=== PATIENT | female | born 1965 ===

== ENCOUNTER 2022-10-27 08:10 | Day surgery (SDC) | payer OTHER ==
[2022-10-27] MEDS ORDERED: Ringers Lactate 1,000 ML IV ONE (08:46)
[2022-10-27] MEDS ORDERED: CEFAZOLIN SODIUM 1 GM/VIAL ONE (08:46)
[2022-10-27] MEDS ORDERED: ONDANSETRON 4 MG/2 ML VIAL ONE ×2 (09:24→13:02)
[2022-10-27] MEDS ORDERED: MIDAZOLAM HCL 2 MG/2 ML INJ ONE (09:24)
[2022-10-27] MEDS ORDERED: FENTANYL CITR 100 MCG/2 ML ONE (09:24)
[2022-10-27] MEDS ORDERED: propofoL 200 MG/20 ML VIAL IV ONE (09:24)
[2022-10-27] MEDS ORDERED: LIDOCAINE 2% MPF 5 ML VIAL ONE ×2 (09:24→12:13)
[2022-10-27] MEDS ORDERED: KETAMINE HCL IN 0.9 % NACL 50 MG/5 ML SYRINGE IV ONE (11:19)
[2022-10-27] MEDS ORDERED: dexAMETHasone 4 MG/ML VIAL ONE (11:25)
[2022-10-27] MEDS ORDERED: EPHEDRINE SULF 50 MG/ML VIAL ONE (11:26)
[2022-10-27] MEDS: LIDOCAINE 1% W/EPI 1:100,000 50 ML MDV ONE ×2 (11:33→11:49)
[2022-10-27] MEDS: SILVER SULFADIAZINE 1% 25 GM TOP ONE ×2 (11:48→11:51)
[2022-10-27] MEDS ORDERED: KETOROLAC 30 MG/ML INJ ONE (11:59)
[2022-10-27] MEDS ORDERED: SUCCINYLCHOLINE 20 MG/ML (10 ML) IV ONE (12:19)
[2022-10-27] MEDS ORDERED: MEPERIDINE HCL 25 MG/ML SYR ONE (12:30)
[2022-10-27] MEDS ORDERED: HYDROMORPHONE HCL 1 MG/ML INJ ONE (12:51)
[2022-10-27] MEDS ORDERED: Ringers Lactate 500 ML IV ONE (12:53)
[2022-10-27 14:20] VITALS: BP 125/65; TEMP 96.8; O2SAT 99
--- NOTE | 2022-10-27 21:26 | OP ---
Date of Procedure: 10/27/2022 Surgeon: Sharri Smith MD Preoperative Diagnoses: 1.High-grade vulvar intraepithelial neoplasia (ADELA). 2.Anogenital condylomata acuminata. Postoperative Diagnoses: 1.High-grade vulvar intraepithelial neoplasia (ADELA). 2.Anogenital condylomata acuminata. Procedures Performed: 1.Vulvar and perianal colposcopy. 2.CO2 laser ablation, destruction of ADELA, and laser ablation and destruction of anogenital warts. Anesthesia: General with LMA and local with lidocaine. Specimens: No specimens. Complications: No complications. Drains: No drains. Estimated Blood Loss: Minimal. Condition: Stable. Findings: There were at least 14 to 15 lesions, 2 dysplastic lesions, and rest of the lesions were c ondylomata. After the procedure, colposcopy was performed and ensured all the vulvar condylomata wer e completely destroyed and perianal condylomata that visualized were ablated with the laser. Indications: The patient is a 57-year-old patient, known to me, smoker, has had high-grade ADELA in e past and has wide local excision alongside surgical removal of condylomata. She presented now with recurrence of some warts. Colposcopy and biopsy showed ADELA high-grade on both the inferior labia mi shannon or inner part of the labia majora on both sides. Subsequent colposcopy and biopsy of an adjacen t lesion on the right showed lichen sclerosus with no dysplasia left. The repeat was performed to fo llow up on the resolution of warts after treatment with imiquimod topical treatment. As the warts we re still present with dysplasia absent, we discussed about all the different options including wide l ocal excision and referral to a gynecological oncologist, continue treatment with imiquimod of both l esions. The patient preferred to have surgical treatment and discussed about laser ablation which wo uld not give us the specimens for checking margins; however, since there was no discernible dysplasia on colposcopy after the treatment with imiquimod and a biopsy which could have potentially completel y removed the lesion and the patient wanted to proceed with the laser the vulvar tissue, w hich could prevent significant dyspareunia as compared to what even with this procedure. The patient fully understood this and consented. The perianal biopsy was also negative for ADELA; fregoso [place], if there are perianal dysplastic lesions either in the near future or later, she will be referre d to a colorectal surgeon for management for the perianal warts. She was consented and they will be removed in the area further away from the anal orifice and if there is any detected pretty close to t he anal orifice or inside the anal epithelium, then this would be left alone and that she would be re ferred later to a colorectal surgeon for treatment. 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 The plan was to treat her with a perioperative antibiotic and then Bactrim gabo and postop. Prescriptions were sent. The patient was consented an d taken back to the OR. Her was present at the bedside. The patient wished that we do not d isclose the nature of her problem and HPV with her . So, the discussion was just kept at reas suring her about her well-being after the procedure. Details of the procedure to be discusse d with the patient alone. Procedure In Detail: After informed consent was verified, she was taken back to OR, placed in supine fashion on the operating table. After general anesthesia was given, she was placed in a dorsal lith otomy position. The labia and perianal area were all prepped with 5% acetic acid. The CO2 laser set ting was set at 7.5 jim for power and laser fiber was used with a straight tip handle. All precaut ions were taken with wet cloth around and the surrounding area, smoke evacuation for the HPV plume an d mask for everyone in the room and laser glasses in case if someone did not have glasses. The lesions were all circumscribed in a circular fashion with the laser light. Then, ablation was ca rried in a perpendicular direction going to the entire epithelial layer of the skin. The area of dysplastic sides was marked out circumferentially and then treatment to the entire epithe lial layer. All the areas were cleaned out with the dilute vinegar and colposcopy was performed to ensure that al l the lesions were adequately treated. There were 2 areas that were needed further epithelial treatm ent and they were done. There was good hemostasis. Lidocaine with epi was injected at the base of a ll the ablated sites. The patient was recovered from anesthesia after the counts were correct. She was taken to the PACU in stable condition. Her was debriefed that she was in a good conditio n. Details to follow at her appointment in the office. Silvadene cream twice a day, gabo-care were all reviewed, and the remaining Silvadene ointment tube was handed to them. JIN/HOME Voice ID: [id number] Report ID: [id number]
== END 2022-10-27 14:06 | disposition home or self-care (01) ==
LOC: OR 08:10
PROVIDERS: ATTEND Obstetrics & Gynecology
PROC: 0H59XZZ Destruction of Perineum Skin, External Approach (ICD-10-PCS; 2022-10-27)
PROC: 0H5AXZD Destruction of Inguinal Skin, Multiple, External Approach (ICD-10-PCS; principal; 2022-10-27 10:30)
DX: D07.1 Carcinoma in situ of vulva (principal); A63.0 Anogenital (venereal) warts; L90.0 Lichen sclerosus et atrophicus; N95.2 Postmenopausal atrophic vaginitis; F17.210 Nicotine dependence, cigarettes, uncomplicated; Z86.14 Personal history of Methicillin resistant Staphylococcus aureus infection
CPT/HCPCS: 56515; 46917; J2704; J1100; J2001 ×2; J2250; J3010; J2175; J1170; J2405 ×2; J7120; J0690

== ENCOUNTER 2024-11-07 10:36 | Day surgery (SDC) | payer OTHER ==
[2024-11-04 14:01] LABS: Absolute Lymphocytes (CBC) 2.5 K/uL (0.7-4.9); Hematocrit 32.7 % (36.0-45.0); Hemoglobin 11.1 g/dL (12.0-15.0); MCH 31.0 pg (27.0-35.0); MCHC 34.0 g/dL (32.0-36.0); MCV 91.3 fL (80-100); MPV 8.5 fL (7.6-11.3); Nucleated RBC Absolute Count 0.0 (0-0); Nucleated Red Blood Cells % 0.1 % (0-0); RBC Red Blood Cell Count 3.58 M/uL (3.86-4.86); White Blood Count 4.90 thou/uL (4.3-10.9)
[2024-11-04 14:15] LABS: Anion Gap 5.8 mEq/L (5.0-15.0); BUN Blood Urea Nitrogen 12.0 mg/dL (7-18); Glucose Level 99.0 mg/dL (74-106); Potassium 4.8 mEq/L (3.5-5.1)
[2024-11-07] MEDS: Ringers Lactate 1,000 ML IV ONE (11:00)
[2024-11-07] MEDS: NA CHLORIDE 0.9% 250 ML ONE (11:30)
[2024-11-07] MEDS: VANCOMYCIN 1 GM/VIAL ONE (11:30)
[2024-11-07] MEDS ORDERED: MIDAZOLAM HCL 2 MG/2 ML INJ ONE ×2 (12:43→15:18)
[2024-11-07] MEDS ORDERED: ONDANSETRON 4 MG/2 ML VIAL ONE ×2 (12:43→15:18)
[2024-11-07] MEDS ORDERED: LIDOCAINE 2% MPF 5 ML VIAL ONE ×2 (12:43→15:18)
[2024-11-07] MEDS ORDERED: FENTANYL CITR 100 MCG/2 ML ONE ×2 (12:43→15:18)
[2024-11-07] MEDS: CEFAZOLIN SODIUM 2 GM/VIAL ONE (12:54)
[2024-11-07] MEDS: LIDOCAINE HCL/EPINEPHRINE 20 ML MDV ONE ×2 (12:55→16:46)
[2024-11-07] MEDS ORDERED: EPHEDRINE SULF 50 MG/ML VIAL ONE (15:35)
[2024-11-07] MEDS ORDERED: Ringers Lactate 1,000 ML IV ONE (16:32)
[2024-11-07] MEDS: BUPIVACAINE 0.25% PF 10 ML VIAL ONE (16:58)
[2024-11-07 17:24] VITALS: O2SAT 100
[2024-11-07 18:32] VITALS: BP 96/60; TEMP 97.9
--- NOTE | 2024-11-08 07:36 | OP ---
Date of Procedure: 11/07/2024 Surgeon: Sharri Smith MD Hydro Excavation Operator: None. Preoperative Diagnosis: ADELA 2 right labium inferior portion (right vulvar ADELA 2). Postoperative Diagnoses: 1. ADELA 2 right labium inferior portion (right vulvar ADELA 2). 2. Anogenital wart (condylomata). Procedures Performed: 1. Wide local excision of the right lower labium in the vestibule. 2. Advancement flaps to reconstruct the lower portion of right vulva. 3. Salvation of the anogenital condylomata. Anesthesia: General with LMA and a local field block. Complications: None. Drains: None. Findings: Vulvar colposcopy was performed. Acetowhite epithelium was not noted in the vulvar area. There were scars from prior biopsies and the most recent biopsy from the vulvar colposcopy and the m ost 2 recent procedures. The biopsy sites were noted and once these were marked and matched with the surface anatomy, the area of ADELA 2 biopsy was mapped out and a 3 x 2.5 cm area was marked out with a marking pen from the lower portion of the labia minora on the right side lining the inner aspect of the labia majora coming into the vestibule carefully avoiding the Bartholin's gland, then in the midl ine through the vestibule distally onto the perineal skin and lateral margin marked out in an ellipti emily fashion. Once this was carefully marked out in correlation with the map provided by the colposco pic images, dilute vasopressin was taken and was excised and closed in 4 layers with 3 con dylomata seen in the genital area at 9 o'clock and 11 and 12 o'clock, all these were fulgurated. Enhancement counts were created in order for mobilization of the medial buttock tissue and mobilizati on of the vaginal epithelium, vestibular epithelium, and connective tissue in order for me to close t he defect. The patient is a well-known patient to the practice, 59 years old with recurrent vulvar dysplasia. A fter being lost to follow up for a few years, the patient had returned for screening with colposcopie s and they have been observing, also had complaints of warts and confirmed to be in the genital condy lomata, being treated. On the most recent biopsy in the right side, there was ADELA 2 on permanent pat hology and therefore the patient was counseled that the dysplasia has progressed and that I would rec ommend wide local excision, observation with followup colposcopies, and biopsies were also discussed. The patient wanted to proceed with a wide local excision . Description Of Procedure: After informed consent was re-verified in the preoperative area, she was t cr back to OR, placed in supine fashion on the table, general anesthesia was given. She was placed in a dorsal lithotomy position using Sigifredo stirrups. Vulva, vagina, and perineum were prepped and d raped in a sterile fashion. 1% lidocaine with epinephrine 20 mL was injected all around the surrounding tissues. Then, a similar incision on the medial aspect and then a concave marking on the outside were made after colposcopic exam and no acetowhite epithelium was noted in correlation with the vulvar colposcopy biopsy picture or image. A 15 blade was used to make the incision in an elliptical fashion. The skin was in full thickness ex cised and handed over after marking the long end at 12 o'clock and short end at 3 o'clock. The flaps from the medial thigh were raised by gently mobilizing the epithelium and connective tissue s along with the fat. Once these were mobilized on the lateral margin, the medial margin was opened up. Care was taken the entire time to avoid the Bartholin's glands and stay towards the perineal bod y structures and capsule of the external anal sphincter without interrupting it. The flaps were also raised on the vaginal side and once there was adequate mobility, deep connective tissue apposition w as obtained with 3 buried 2-0 Vicryl sutures. 3-0 Vicryl sutures followed by 2 more layers of interr upted sutures were placed to re-appose the mobilized tissues together without tension. The third lay er was interrupted subcuticular sutures in a continuous running fashion and then the last layer was a simple stitch. At least 9 of them were placed with 3-0 Vicryl on SH needle. Once this was complete and there was good apposition, there was a V-Y separation that was done to enhance the flap. Once t his was all complete, rectal exam was negative. The bladder was drained with a catheter. The patien t was recovered from anesthesia after draining at least 450 of urine. 0.25% bupivacaine was injected circumferentially . She will follow up in 1 week and 3 months postop. Perioperative nano men to keep it washed with and then apply coconut oil if needed and antibiotic ointment, s hower daily. JIN/HOME Voice ID: [id number] Report ID: [id number]
== END 2024-11-07 18:25 | disposition home or self-care (01) ==
LOC: OR 10:36
PROVIDERS: ATTEND Obstetrics & Gynecology
PROC: 0JXL0ZZ Transfer Right Upper Leg Subcutaneous Tissue and Fascia, Open Approach (ICD-10-PCS; 2024-11-07)
PROC: 0JBL0ZZ Excision of Right Upper Leg Subcutaneous Tissue and Fascia, Open Approach (ICD-10-PCS; 2024-11-07)
PROC: 0JBB0ZZ Excision of Perineum Subcutaneous Tissue and Fascia, Open Approach (ICD-10-PCS; principal; 2024-11-07 13:30)
DX: D07.1 Carcinoma in situ of vulva (principal)
CPT/HCPCS: 93005; 85025; 80048; 36415; 88305; 14040; J2704; J2003; J2250; J3010; J3370; J1100; J2405; J7120 ×2; J7050